=== PATIENT | female | born 2000 | race Caucasian/White ===

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

== ENCOUNTER 2021-03-28 12:15 | Outpatient (REF) | payer OTHER, MEDICAID, SELFPAY ==
[2021-03-28 20:36] LABS: HCT 36.1 % (36.0-46.0); MCH 29.1 pg (27.0-33.0); MCHC 33.2 % (32.0-36.0); MCV 87.6 fL (80-95); MPV 10.5 fL (8.0-11.0); Nucleated RBC 0 %; Platelet Count 190 10^3/uL (130-400); RBC 4.12 10^6/uL (3.93-5.22); RDW 12.7 % (11.7-14.6); RDW-SD 40.4 fL
[2021-03-28 20:56] LABS: ALT 72 U/L (14-59); AST 43 U/L (15-37); Albumin 3.7 g/dL (3.4-5.0); Alkaline Phosphatase 64 U/L (46-116); Anion Gap 11.3 mmol/L (3-11); BUN 10 mg/dL (7-18); Bilirubin, Total 0.3 mg/dL (0.2-1.0); CO2 24.7 mmol/L (21.0-32.0); CREATININE 0.9 mg/dL (0.55-1.02); Chloride 106 mmol/L (98-107); Glucose 82 mg/dL (74-106); Sodium 142 mmol/L (136-145); Total Protein 7.3 g/dL (6.4-8.2)
[2021-03-28 20:59] LABS: Mono Screening Negative (Negative)
[2021-03-28 21:52] LABS: Absolute Basophil Count 0.15 10^3/uL (0.0-0.2); Absolute Eosinophil Count 0.07 10^3/uL (0.0-0.7); Absolute Lymphocyte Count 5.48 10^3/uL (1.2-3.4); Absolute Monocyte Count 0.44 10^3/uL (0.1-0.8); Absolute Neutrophil Count 1.26 10^3/uL (1.2-6.7); Atypical Lymphocytes % 8
[2021-03-28 21:53] LABS: Diff Comment Manual Differential; RBC Morphology Normal
[2021-03-29 11:34] LABS: COVID-19 RT-PCR UVMMC Result Negative (Negative)
== END 2021-03-28 12:16 | disposition home or self-care (01) ==
LOC: NCHCN 12:15
PROVIDERS: PCP Nurse Practitioner Family; Visit Provider Nurse Practitioner Family
DX: R59.0 Localized enlarged lymph nodes (principal); J02.9 Acute pharyngitis, unspecified; Z20.822 Contact with and (suspected) exposure to COVID-19
CPT/HCPCS: 80053; U0003; 85025; 86308

== ENCOUNTER 2021-03-31 15:12 | Outpatient (REF) | payer OTHER, MEDICAID, SELFPAY ==
[2021-03-31 21:29] LABS: Mono Screening Negative (Negative)
[2021-04-04 09:37] LABS: HIV-1/2 Ag & Ab Screen Negative (Negative)
[2021-04-04 13:26] LABS: EBNA IgG Negative (Negative); EBV Interpretation (See Note); VCA IgG Positive (Negative); VCA IgM Positive (Negative)
[2021-04-04 20:15] LABS: Chlamydia amplified RNA Negative (Negative); N gonorrhoeae amplified RNA Negative (Negative); Source Throat
== END 2021-03-31 15:13 | disposition home or self-care (01) ==
LOC: NCHCN 15:12
PROVIDERS: PCP Nurse Practitioner Family; Visit Provider Nurse Practitioner Family
DX: R59.9 Enlarged lymph nodes, unspecified (principal); J02.9 Acute pharyngitis, unspecified
CPT/HCPCS: 87389; 87491; 87591; 86308; 86664; 86665; 87070

== ENCOUNTER 2021-05-06 15:39 | Outpatient (REF) | payer OTHER, MEDICAID, SELFPAY | END 2021-05-06 15:40 | disposition home or self-care (01) | LOC: NCHCN 15:39 | PROVIDERS: PCP Nurse Practitioner Family; Visit Provider Internal Medicine | DX: R30.0 Dysuria (principal) | CPT/HCPCS: 87077; 87086; 87186 ==

== ENCOUNTER 2022-11-23 10:06 | Outpatient (REF) | payer MEDICAID, SELFPAY ==
--- NOTE | 2022-11-23 09:30 | PAPFT_PTH ---
PATIENT: Kimmy Ashley LOC: [facility] U#:[id number] AGE/SX: 22/F ROOM: RE11/23/[address]: Laura Severino : 2000 BED: DIS: 11/23/2022 SPEC #: [id number] RECD: 11/23/22 18:04 STATUS: DAVID WALLIS #: [id number] BERT: 11/23/22 09:[address]: Laura Patel DEPT: [facility] Cytology RECD BY: Kiara Rdz Tissues: 1 - CX/ENDOCX FOR PAP SMEARS Procedures: PAP THIN PREP/[facility] Screening Comments: [id number]
== END 2022-11-23 10:07 | disposition home or self-care (01) ==
LOC: NCHCN 10:06
PROVIDERS: PCP Nurse Practitioner Family; Visit Provider Nurse Practitioner Family
DX: Z12.4 Encounter for screening for malignant neoplasm of cervix (principal)
CPT/HCPCS: 88142